=== PATIENT | female | born 1960 | race Caucasian/White ===

== ENCOUNTER 2025-11-18 13:23 | Emergency (ER) | payer MEDICARE, MEDICAID ==
[~2025-11-18] VITALS: Ht 180.3 cm; Wt 89.5 kg
[2025-11-18 13:33] VITALS: BP 139/86; PULSE 102; RESP 15; TEMP 98; O2SAT 98
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
== END 2025-11-18 14:33 ==
LOC: ER 13:24
DX: Z00.00 Encounter for general adult medical examination without abnormal findings (principal); I10 Essential (primary) hypertension; F10.90 Alcohol use, unspecified, uncomplicated; Y90.9 Presence of alcohol in blood, level not specified
CPT/HCPCS: 99283